=== PATIENT | male | born 1970 | race Caucasian/White ===

== ENCOUNTER 2019-06-14 11:54 | Emergency (ER) | payer SELFPAY ==
[2019-06-14] MEDS ORDERED: CYCLOBENZAPRINE HCL 10 MG TABLET PO ONE (12:59)
[2019-06-14] MEDS ORDERED: KETOROLAC TROMETHAMINE 60 MG/2 ML SDV IM ONE (12:59)
[2019-06-14] MEDS ORDERED: DEXAMETHASONE SOD PHOS INJ 10 MG/1 ML VIAL IM ONE (12:59)
--- NOTE | 2019-06-14 13:01 | ER Document Report ---
HPI <ELIDIA MOSHER - Last Filed: 06/14/19 14:33> - HPI Pain Level: 4 Notes: Otherwise healthy 49-year-old male presents emergency department chief complaint of low back pain. Patient reports history of low back pain over the last 20 to 30 years. States this flareup is been ongoing for the last 2 days. 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 Denies any loss of control of bowel or bladder function, denies any urinary retention or saddle anesthesia. <NOBLE RIOS - Last Filed: 06/14/19 20:47> - HPI Time Seen by Provider: 06/14/19 12:53 Past Medical History - General Information source: Patient - Social History Smoking Status: Never Smoker Chew tobacco use (# tins/day): Yes Frequency of alcohol use: None Drug Abuse: None Family History: Reviewed & Not Pertinent Patient has suicidal ideation: No Patient has homicidal ideation: No - Medical History Medical History: Negative Surgical Hx: Negative - Immunizations Immunizations up to date: Yes <NOBLE RIOS - Last Filed: 06/14/19 20:47> Vertical Provider Document - CONSTITUTIONAL Notes: PHYSICAL EXAMINATION: GENERAL: Well-appearing, well-nourished and in no acute distress. HEAD: Atraumatic, normocephalic. EYES: Pupils equal round extraocular movements intact, conjunctiva are normal. ENT: Nares patent NECK: Normal range of motion LUNGS: No respiratory distress Musculoskeletal: Normal range of motion, bilateral lumbar paraspinous tenderness, no vertebral tenderness, step-off or deformity. NEUROLOGICAL: Normal speech, normal gait. PSYCH: Normal mood, normal affect. SKIN: Warm, Dry, normal turgor, no rashes or lesions noted. - INFECTION CONTROL TRAVEL OUTSIDE OF THE [place] IN LAST 30 DAYS: No <NOBLE RIOS - Last Filed: 06/14/19 20:47> Course - Vital Signs Vital signs: Temp Pulse Resp BP Pulse Ox 97.9 F 74 16 142/89 H 95 06/14/19 13:37 06/14/19 13:37 06/14/19 13:37 06/14/19 13:37 06/14/19 13:37 <ELIDIA MOSHER - Last Filed: 06/14/19 14:33> - Re-evaluation Re-evalutation: 06/14/19 13:00 Presentation of a well appearing patient complaining of acute on chronic back pain. No rapid progression of symptoms, systemic symptoms including fevers, chills, weight loss, history of recent bacterial infection, bilateral symptoms, numbness, weakness, difficulty walking, urinary retention or bowel incontinence, personal history of cancer, immunosuppression, diabetes, known AAA, or history of IV drug use. Exam is without point tenderness over vertebral bodies, pulsatile abdominal mass, and patient has symmetric and intact lower extremity strength, sensation, and reflexes without clonus. 2+ symmetric medial malleolar and dorsalis pedis pulses Based on history and physical, I have a very low suspicion of a concerning etiology of pain including epidural compression syndrome, spinal infection, transverse myelitis, malignancy, abdominal aortic aneurysm, renal colic, acute lower extremity claudication, neurogenic claudication, ankylosing spondylitis, or other intra-abdominal process. Due to absence of concerning risk factors in history and physical as well as absence of rapidly progressive, severe, or bilateral symptoms, will defer imaging at this point. - Vital Signs Vital signs: Temp Pulse Resp BP Pulse Ox 98.3 F 79 18 124/99 H 95 06/14/19 12:32 06/14/19 12:32 06/14/19 12:32 06/14/19 12:32 06/14/19 12:32 <NOBLE RIOS - Last Filed: 06/14/19 20:47> Discharge <ELIDIA MOSHER - Last Filed: 06/14/19 14:33> <NOBLE RIOS - Last Filed: 06/14/19 20:47> - Discharge Clinical Impression: Low back pain with sciatica Qualifiers: Chronicity: chronic Back pain laterality: midline Sciatica laterality: bilateral sciatica Qualified Code(s): M54.41 - Lumbago with sciatica, right side Condition: Stable Disposition: HOME, SELF-CARE Additional Instructions: You have been seen in the Emergency Department (ED) today for back pain. Your workup and exam have not shown any acute abnormalities and you are likely suffering from muscle strain or possible problems with your discs, but there is no treatment that will fix your symptoms at this time. Please take the muscle relaxer that has been prescribed as directed. You should also purchase a local lidocaine cream such as "aspercreme with lidocaine" and use per bottle instructions to the affected area. Apply heat to the area as often as you are able. Continue to keep active and avoid prolonged periods of bed rest. Please follow up with your doctor as soon as possible regarding today's ED visit and your back pain. Return to the ED for worsening back pain, fever, weakness or numbness of either leg, or if you develop either (1) an inability to urinate or have bowel movements, or (2) loss of your ability to control your bathroom functions (if you start having "accidents"), or if you develop other new symptoms that concern you.concern you. Prescriptions: Cyclobenzaprine HCl [Flexeril 10 mg Tablet] 10 mg PO TIDP PRN #20 tab PRN Reason: Forms: Special Work Note, Return to Work Referrals: LOCALMD,NO [NO LOCAL MD] - Follow up as needed
[2019-06-14 13:45] VITALS: BP 142/89
== END 2019-06-14 13:37 | disposition home or self-care (01) ==
LOC: ER 11:54
DX: M54.41 Lumbago with sciatica, right side (principal)
CPT/HCPCS: 99283; 96372; J1885; J1100

== ENCOUNTER 2019-08-03 10:10 | Emergency (ER) | payer OTHER ==
[2019-08-03] MEDS ORDERED: MAG HYDROX/AL HYDROX/SIMETH SUSP 30 ML UDCUP PO ONE (11:00)
[2019-08-03] MEDS ORDERED: METOCLOPRAMIDE HCL ORAL SOLN 10 MG/10 ML UDCUP PO ONE (11:00)
[2019-08-03] MEDS ORDERED: LIDOCAINE 2% VISCOUS SOLN 15 ML UDCUP PO ONE (11:00)
--- NOTE | 2019-08-03 11:02 | ER Document Report ---
ED Medical Screen (RME) - General Chief Complaint: Abdominal Pain Stated Complaint: ABDOMINAL PAIN/VOMITING BLOOD Time Seen by Provider: 08/03/19 10:55 Notes: Patient is a 49-year-old male who presents to the emergency department with a chief complaint of abdominal pain. Patient states that he has had his symptoms for the past month. States the pain is in his mid abdomen around his navel area. He states that he has GERD, and takes Prilosec whenever he has symptoms, but does not take the medication every day. Patient states that he has vomited and it had a small amount of blood in it. Exam: Soft, mildly tender abdomen. Exam limited due to patient sitting in a chair. Patient will be evaluated by provider in the main emergency department. I have greeted and performed a rapid initial assessment of this patient. A comprehensive ED assessment and evaluation of the patient, analysis of test results and completion of medical decision making process will be conducted by an additional ED providers. TRAVEL OUTSIDE OF THE [place] IN LAST 30 DAYS: No - Related Data Allergies/Adverse Reactions: bee venom protein (honey bee) Allergy (Verified 08/03/19 10:50) morphine Adverse Reaction (Verified 08/03/19 10:50) VOMITING Past Medical History - Social History Chew tobacco use (# tins/day): Yes - Immunizations Immunizations up to date: Yes Physical Exam - Vital signs Vitals: Temp Pulse Resp BP Pulse Ox 97.8 F 71 20 114/71 97 08/03/19 10:14 08/03/19 10:14 08/03/19 10:14 08/03/19 10:14 08/03/19 10:14 Course - Vital Signs Vital signs: Temp Pulse Resp BP Pulse Ox 97.8 F 71 20 114/71 97 08/03/19 10:14 08/03/19 10:14 08/03/19 10:14 08/03/19 10:14 08/03/19 10:14
[2019-08-03 11:27] LABS: ABSOLUTE BASOPHILS # (AUTO) 0.1 10^3/uL (0.0-0.2); ABSOLUTE EOSINOPHILS # (AUTO) 0.1 10^3/uL (0.0-0.6); ABSOLUTE LYMPHOCYTES (AUTO) 1.7 10^3/uL (0.5-4.7); ABSOLUTE MONOCYTES (AUTO) 0.5 10^3/uL (0.1-1.4); ABSOLUTE NEUT (AUTO) 3.4 10^3/uL (1.7-8.2); BASOPHILS % (AUTO) 0.9 % (0-2); EOSINOPHILS % (AUTO) 1.3 % (0-6); HEMATOCRIT 49.8 % (37.9-51.0); HEMOGLOBIN 16.8 g/dL (13.5-17.0); LYMPHOCYTES % (AUTO) 29.7 % (13-45); MEAN CORPUSCULAR HEMOGLOBIN 29.2 pg (27.0-33.4); MEAN CORPUSCULAR HGB CONC 33.8 g/dL (32.0-36.0); MEAN CORPUSCULAR VOLUME 86 fl (80-97); MONOCYTES % (AUTO) 8.5 % (3-13); PLATELET COUNT 249 10^3/uL (150-450); RED BLOOD COUNT 5.77 10^6/uL (4.35-5.55); RED CELL DISTRIBUTION WIDTH 13.2 % (11.5-14.0); SEGMENTED NEUTROPHILS % (AUTO) 59.6 % (42-78); TOTAL CELLS COUNTED % (AUTO) 100 %; WHITE BLOOD COUNT 5.7 10^3/uL (4.0-10.5)
[2019-08-03 11:37] LABS: APPEARANCE,URINE CLEAR; BILIRUBIN,URINE NEGATIVE (NEGATIVE); COLOR,URINE YELLOW; GLUCOSE, URINE NEGATIVE (NEGATIVE); KETONES,URINE NEGATIVE (NEGATIVE); LEUKOCYTE ESTERASE,URINE NEGATIVE (NEGATIVE); NITRITE,URINE NEGATIVE (NEGATIVE); PROTEIN,URINE NEGATIVE (NEGATIVE); URINE SPECIFIC GRAVITY 1.025; UROBILINOGEN,URINE NEGATIVE mg/dL (<2.0)
[2019-08-03 11:48] LABS: ALBUMIN 4.3 g/dL (3.5-5.0); ALKALINE PHOSPHATASE 60 U/L (38-126); ANION GAP 6 (5-19); ASPARTATE AMINO TRANSFERASE 19 U/L (17-59); BILIRUBIN,TOTAL 0.4 mg/dL (0.2-1.3); BLOOD UREA NITROGEN 14 mg/dL (7-20); CALCIUM 9.6 mg/dL (8.4-10.2); CARBON DIOXIDE 28 mmol/L (22-30); CHLORIDE 107 mmol/L (98-107); GLUCOSE 91 mg/dL (75-110); TOTAL PROTEIN 7.1 g/dL (6.3-8.2)
[2019-08-03] MEDS ORDERED: NORMAL SALINE 1000 ML 1,000 ML IV ONE (12:39)
[2019-08-03] MEDS ORDERED: PANTOPRAZOLE SODIUM 40 MG VIAL IV ONE (12:42)
--- NOTE | 2019-08-03 13:54 | RADIOLOGY REPORT (SQ) ---
EXAM DESCRIPTION: CT ABD/PELVIS WITH IV ONLY COMPLETED DATE/TIME: 08/03/2019 1:32 pm REASON FOR STUDY: Abdominal pain COMPARISON: None. TECHNIQUE: CT scan of the abdomen and pelvis performed using helical scanning technique with dynamic intravenous contrast injection. No oral contrast. Images reviewed with lung, soft tissue, and bone windows. Reconstructed coronal and sagittal MPR images reviewed. Delayed images for evaluation of the urinary system also acquired. All images stored on PACS. All CT scanners at this facility use dose modulation, iterative reconstruction, and/or weight based d osing when appropriate to reduce radiation dose to as low as reasonably achievable (ALARA). [facility]: Dose Right [facility]: CareDose [facility]: Dose Right [facility]: Teradose 4D [facility]: [employer] CONTRAST TYPE AND DOSE: Contrast/concentration: Isovue 350.00 mg/ml; Total Contrast Delivered: 99.0 ml; Total Saline Delivered: 72.0 ml RENAL FUNCTION: Creatinine 1.07 milligrams/deciliter RADIATION DOSE: CT Rad equipment meets quality standard of care and radiation dose reduction techniq ues were employed. CTDIvol: 11.4 - 15.8 mGy. DLP: 1468 mGy-cm. LIMITATIONS: None. FINDINGS: LOWER CHEST: No acute findings. LIVER: The relative hypoattenuation hepatic parenchyma compared to the splenic parenchyma on the port al venous phase is suggestive of hepatic steatosis. The portal veins are patent. There is no hepati c mass. SPLEEN: 11 x 8 mm ovoid hypervascular splenic mass. There is no splenomegaly. PANCREAS: No acute abnormality. GALLBLADDER: No abnormality that is apparent on CT. ADRENAL GLANDS: No mass or asymmetry. RIGHT KIDNEY AND URETER: No solid masses. No calcifications. No hydronephrosis or hydroureter. LEFT KIDNEY AND URETER: No solid masses. No calcifications. No hydronephrosis or hydroureter. AORTA AND VESSELS: No aneurysm or dissection of the abdominal aorta. RETROPERITONEUM: No retroperitoneal adenopathy, hemorrhage or mass. BOWEL AND PERITONEAL CAVITY: No bowel obstruction, bowel wall thickening or pericolonic/perienteric i nflammation. There is no mesenteric adenopathy, free intraperitoneal fluid or mesenteric/omental inf lammation. APPENDIX: Surgical clips in the right lower quadrant - correlate for prior appendectomy. PELVIS: The urinary bladder is distended and normal in appearance. The prostate gland is heterogene ous. ABDOMINAL WALL: Fat containing left inguinal hernia. BONES: No acute findings. OTHER: No other finding. IMPRESSION: 1. No acute intra-abdominal abnormality. 2. 11 x 8 mm ovoid hypervascular splenic lesion. 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 TECHNICAL DOCUMENTATION: JOB ID: [id number] Quality ID # [id number]: Final reports with documentation of one or more dose reduction techniques (e.g., Au tomated exposure control, adjustment of the mA and/or kV according to patient size, use of iterative reconstruction technique) 2010 [employer]- All Rights Reserved Reading location - IP/workstation name: [email or web address]
--- NOTE | 2019-08-03 14:53 | ER Document Report ---
ED General - General Chief Complaint: Abdominal Pain Stated Complaint: ABDOMINAL PAIN/VOMITING BLOOD Time Seen by Provider: 08/03/19 10:55 Notes: 49-year-old man presents to the emergency department with a complaint of abdominal pain. He notes episodes of vomiting and 3 separate occasions of hematemesis. His last episode of blood in his vomitus was 3 days ago. He chews tobacco apparently swallows the juice. Sometimes, it causes nausea, he denies diarrhea or blood in his stools. He also denies dizziness or lightheadedness. He takes Neurontin and Prozac for chronic pain and anxiety. TRAVEL OUTSIDE OF THE [place] IN LAST 30 DAYS: No - Related Data Allergies/Adverse Reactions: bee venom protein (honey bee) Allergy (Verified 08/03/19 10:50) morphine Adverse Reaction (Verified 08/03/19 10:50) VOMITING Past Medical History - Social History Smoking Status: Never Smoker Chew tobacco use (# tins/day): Yes Family History: Reviewed & Not Pertinent Patient has suicidal ideation: No Patient has homicidal ideation: No - Immunizations Immunizations up to date: Yes Review of Systems - Review of Systems Notes: Constitutional: Negative for fever. HENT: Negative for sore throat. Eyes: Negative for visual changes. Cardiovascular: Negative for chest pain. Respiratory: Negative for shortness of breath. Gastrointestinal: + Abdominal pain, + vomiting, no diarrhea. Genitourinary: Negative for dysuria. Musculoskeletal: + Chronic back pain. Skin: Negative for rash. Neurological: Negative for headaches, weakness or numbness. 10 point ROS negative except as marked above and in HPI. Physical Exam - Vital signs Vitals: Temp Pulse Resp BP Pulse Ox 97.8 F 71 20 114/71 97 08/03/19 10:14 08/03/19 10:14 08/03/19 10:14 08/03/19 10:14 08/03/19 10:14 - Notes Notes: PHYSICAL EXAMINATION: Physical Exam: General: Well-nourished well-developed 49-year-old male in no acute distress HEENT: NC/AT, pupils equal round and reactive to light, MM moist,nares clear, oropharynx clear, airway patent Neck: supple, no adenopathy, no masses. Good range of motion Lungs: clear, no wheezing, no rales no rhonchi CVS: Regular rate and rhythm no murmur gallop or rub Abdomen: Soft, active, tenderness in the epigastric, periumbilical region. No guarding, no rebound., no masses, no hepatosplenomegaly Ext: No edema, clubbing or cyanosis. Neuro: Alert and responsive, moving all 4 extremities on command, cranial nerves intact, no focal findings Skin: Intact no open lesions, no rash PSYCH: Normal mood, normal affect. Course - Re-evaluation Re-evalutation: 08/03/19 14:47 Patient symptoms are mild at this point, laboratory data and CT of the abdomen and pelvis were performed. - Vital Signs Vital signs: Temp Pulse Resp BP Pulse Ox 97.8 F 71 20 114/71 97 08/03/19 10:14 08/03/19 10:14 08/03/19 10:14 08/03/19 10:14 08/03/19 10:14 - Laboratory Result Diagrams: 08/03/19 11:10 08/03/19 11:10 Laboratory results interpreted by me: 08/03/19 08/03/19 11:10 11:10 RBC 5.77 H Urine Blood SMALL H 08/03/19 14:48 I have reviewed laboratory data and used this information for the treatment decisions regarding the patient. - Diagnostic Test Radiology reviewed: Image reviewed, Reports reviewed - CT of the abdomen pelvis with IV contrast: No acute intra-abdominal abnormalities seen. There is an 11 x 8 mm ovoid hypervascular splenic lesion, compatible with hemangioma. Discharge - Discharge Clinical Impression: Epigastric abdominal pain Condition: Good Disposition: HOME, SELF-CARE Instructions: Antinausea Medication ([facility]) Additional Instructions: Please follow-up with the [facility] HOME CARE INSTRUCTIONS & INFORMATION: Thank you for choosing us for your medical needs. We hope you're satisfied with the care you received. After you l eave, you must properly care for your problem and, at the same time, observe its progress. Any condition can change. Some illnesses can change rapidly over hours or days. If your condition worsens, return to the Emergency Department or see your physician promptly. ABOUT YOUR X-RAYS AND EKG'S: If you had an EKG or X-rays taken, they have been read by the Emergency Physician. The X-rays and EKG's will also be read by a Radiologist or Purification Supervisor within 24 hours. If discrepancies are noted, you will be notified by telephone. Please be certain the ED has a correct telephone number & address where you can be reached. Also, realize that some fractures or abnormalities do not show up on initial X-rays. If your symptoms continue, see your physician. ABOUT YOUR LABORATORY TEST: If you had laboratory tests, the results have been reviewed by the Emergency Physician. Some test results (for example cultures) may not be available for several days. You will be contacted if any test result shows you need additional treatment. Please be certain the ED has a correct telephone number and address where you can be reached. ABOUT YOUR MEDICATIONS: You will receive instructions on how to take your medicine on the prescription label you receive. Additional information may be provided by the Pharmacy. If you have questions afterwards, call the ED for clarification or further instructions. Some prescribed medications may cause drowsiness. Do not perform tasks such as driving a car or operating machinery without consulting your Pharmacist. If you feel you need a refill of pain medication, your condition will need re-evaluation. Please do not call for a refill of any medication. ABOUT YOUR SIGNATURE: Signature of this document acknowledges to followin. Understanding that you received emergency treatment and that you may be released before al medical problems are known or treated. Please be certain the ED has a correct phone number & address where you can be reached. 2. Acknowledgement that you will arrange for follow-up care as recommended. 3. Authorization for the Emergency Physician to provide information to your follow-up Physician in order to maximize your care. AT ANY TIME, IF YOUR SYMPTOMS CHANGE SIGNIFICANTLY OR WORSEN OR YOU DEVELOP NEW SYMPTOMS, RETURN TO THE EMERGENCY DEPARTMENT IMMEDIATELY FOR RE-EVALUATION. OUR GOAL IS TO PROVIDE EXCELLENT MEDICAL CARE! WE HOPE THAT WE HAVE MET YOUR EXPECTATIONS DURING YOUR EMERGENCY DEPARTMENT VISI T AND THAT YOU FEEL YOU HAVE RECEIVED EXCELLENT CARE! Prescriptions: Omeprazole 40 mg PO DAILY #30 capsule.dr Forms: Return to Work Referrals: [facility] [Provider Group] - Follow up as needed
[2019-08-03 15:23] VITALS: BP 112/75
== END 2019-08-03 15:27 | disposition home or self-care (01) ==
LOC: ER 10:10
DX: R10.13 Epigastric pain (principal); R11.10 Vomiting, unspecified; G89.29 Other chronic pain; M54.9 Dorsalgia, unspecified; Z88.6 Allergy status to analgesic agent; Z91.030 Bee allergy status
CPT/HCPCS: 99284; 96361; 96374; 36415; 83690; 85025; 80053; 81001; 74177; J3490; C9113; J7030

== ENCOUNTER 2019-11-04 09:25 | Emergency (ER) | payer OTHER ==
[2019-11-04] MEDS ORDERED: KETOROLAC TROMETHAMINE 60 MG/2 ML SDV IM ONE (10:50)
[2019-11-04] MEDS ORDERED: CYCLOBENZAPRINE HCL 10 MG TABLET PO ONE (10:50)
--- NOTE | 2019-11-04 10:51 | ER Document Report ---
HPI - HPI Patient complains to provider of: shoulder pain Time Seen by Provider: 11/04/19 10:44 Pain Level: 5 Context: 49-year-old male past medical history significant for chronic joint pain presents to the emergency room complaining of bilateral shoulder pain for the past 3 weeks. 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 States he reported the pain to his job but was told to continue to do his job. States he takes Neurontin for his chronic pain which is been taking without relief. States the pain is gotten progressively worse over the past 2 days. Has not been seen for his symptoms prior to today. Denies any numbness or tingling to his upper extremities. No generalized weakness. Denies any numbness or tingling. Associated Symptoms: None Exacerbated by: Movement Relieved by: Denies Similar symptoms previously: No Recently seen / treated by doctor: No - ROS ROS below otherwise negative: Yes - CONSTITUTIONAL Constitutional: DENIES: Fever - CARDIOVASCULAR Cardiovascular: DENIES: Chest pain - RESPIRATORY Respiratory: DENIES: Trouble Breathing, Coughing - MUSCULOSKELETAL Musculoskeletal: REPORTS: Extremity pain - yomi shoulders - DERM Skin Color: Normal Skin Problems: None Past Medical History - General Information source: Patient - Social History Smoking Status: Never Smoker Chew tobacco use (# tins/day): Yes Frequency of alcohol use: Occasional Drug Abuse: None Family History: Reviewed & Not Pertinent Patient has homicidal ideation: No Musculoskeletal Medical History: Reports Hx Arthritis Past Surgical History: Reports: Hx Appendectomy - Immunizations Immunizations up to date: Yes Vertical Provider Document - CONSTITUTIONAL Agree With Documented VS: Yes Exam Limitations: No Limitations General Appearance: Mild Distress - INFECTION CONTROL TRAVEL OUTSIDE OF THE [place] IN LAST 30 DAYS: No - HEENT HEENT: Atraumatic, Normocephalic - NECK Neck: Normal Inspection, Supple - RESPIRATORY Respiratory: Breath Sounds Normal, No Respiratory Distress, Chest Non-Tender. negative: Rales, Rhonchi, Wheezing - CARDIOVASCULAR Cardiovascular: Regular Rate, Regular Rhythm, No Murmur - BACK Back: Normal Inspection. negative: CVA Tenderness-Right, CVA Tenderness-Left - MUSCULOSKELETAL/EXTREMETIES Musculoskeletal/Extremeties: FROM, Tender - Tenderness on palpation to the bilateral trapezius muscles. Full range of motion with bilateral shoulders. Able to shrug shoulders without difficulty. No obvious deformity noted. There muscle spasms palpated to the bilateral trapezius muscles - NEURO Level of Consciousness: Awake, Alert, Appropriate Motor/Sensory: No Motor Deficit, No Sensory Deficit Notes: Strength equal and adequate bilaterally. Positive bilateral radial pulses. Neurovascular intact. - DERM Integumentary: Warm, Dry, No Rash Course - Re-evaluation Re-evalutation: 11/04/19 11:26 Patient is resting comfortably with decreased pain. Neurovascularly intact. Counseled to take medications as prescribed. Outpatient follow-up with orthopedics if not improving in 2 to 3 days as discussed. On-call physician was provided. Patient was given strict return to the emergency room guidelines. Return for any new or worsening symptoms. All questions were answered. Patient verbalized understanding and agrees with plan of care. - Vital Signs Vital signs: Temp Pulse Resp BP Pulse Ox 98 F 75 16 97 11/04/19 09:46 11/04/19 09:29 11/04/19 09:29 11/04/19 09:29 Discharge - Discharge Clinical Impression: Bilateral shoulder pain Qualifiers: Chronicity: acute Qualified Code(s): M25.511 - Pain in right shoulder Muscle strain, shoulder region Qualifiers: Encounter type: initial encounter Laterality: unspecified laterality Qualified Code(s): S46.919A - Strain of unspecified muscle, fascia and tendon at shoulder and upper arm level, unspecified arm, initial encounter Condition: Stable Disposition: HOME, SELF-CARE Instructions: Muscle Strain ([facility]), Exercise Program for the Shoulder ([facility]), Shoulder Injury ([facility]) Additional Instructions: Use heat 20 minutes 3 times a day. Take medications as prescribed. Outpatient follow-up with orthopedics as discussed. Return for any new or worsening symptoms. Prescriptions: Diclofenac Sodium 75 mg PO BID #20 tablet. Cyclobenzaprine HCl [Flexeril 10 mg Tablet] 10 mg PO TIDP PRN #15 tab PRN Reason: Forms: Return to Work Referrals: ALBERTA OSHEA MD [ACTIVE PROVISIONAL STAFF] - Follow up as needed
== END 2019-11-04 11:39 | disposition home or self-care (01) ==
LOC: ER 09:25
DX: S46.912A Strain of unspecified muscle, fascia and tendon at shoulder and upper arm level, left arm, initial encounter (principal); S46.911A Strain of unspecified muscle, fascia and tendon at shoulder and upper arm level, right arm, initial encounter; G89.29 Other chronic pain; M25.512 Pain in left shoulder; M25.511 Pain in right shoulder; X50.0XXA Overexertion from strenuous movement or load, initial encounter; Y93.H1 Activity, digging, shoveling and raking; Y99.0 Civilian activity done for income or pay
CPT/HCPCS: 99283; J1885